=== PATIENT | female | born 1935 | race Two or more races ===

== ENCOUNTER → 2025-02-06 | Emergency (ER) | payer OTHER ==
[~2025-02-06] VITALS: Ht 160 cm; Wt 58.1 kg
[~2025-02-06] MED LIST: 0.9 % SODIUM CHLORIDE 1,000 ML IV SCH; ACETAMINOPHEN 500 MG GEL..CAP PO ONE; ADULT LOW DOSE81 M1 PO; ALL DAY ALLERGY10 M3 PO; AMLODIPINE-OLM1 EAC3 PO; AMMONIUM LACTA385 GM TOP; CALCIUM GLUCONATE 100 MG/ML VIAL IV ONE; CEFTRIAXONE SODIUM 2,000 MG in 0.9 % SODIUM CHLORIDE 100 ML IV ONE; CILOSTAZOL50 MG; CLOPIDOGREL BIS75 MG PO; DEXTROSE 50 % IN WATER 0.5 G/ML VIAL IV ONE; DULOXETINE HCL40 MG PO; FAMOTIDINE/PF 20 MG in 0.9 % SODIUM CHLORIDE 8 ML IV PUSH ONE; FARXIGA10 MG PO; GLIPIZIDE ER10 MG PO; HORIZANT300 MG PO; HYDRALAZINE HCL10 MG PO; INSULIN REGULAR, HUMAN 1,000 UNIT/10 ML UNITS IV ONE; JANUVIA100 MG PO; KETOROLAC TROMETHAMINE 30 MG VIAL IU ONE; PRAVASTATIN SOD40 MG PO; SODIUM POLYSTYRENE SULFONATE 30G/8 TSP PO ONE; VITAMIN D310 MCG/1 M PO; [UNRECOGNIZED DRUG - OTHER] TOP
[2025-02-06 19:07] LABS: BASO % 0.5 % (0.1-1.2); EOS # 0.08 (0.04-0.54); EOS % 1.0 % (0.7-7.0); LYMPH # 1.53 (1.18-3.74); LYMPH % 19.5 % (19.3-53.1); MEAN PLATELET VOLUME 10.30 fl (9.4-12.4); MONO # 0.46 (0.24-0.82); MONO % 5.9 % (4.7-12.5); NEUT # 5.73 (1.56-6.13); NEUT % 72.8 % (34.0-71.1); RED CELL DISTRIBUTION WIDTH 13.2 % (11.6-14.4)
[2025-02-06 19:10] LABS: ERYTHROCYTE SEDIMENTATION RATE 51 mm/hr (0-30)
[2025-02-06 19:45] LABS: ALT/SGPT 24.0 U/L (12-78); AST/SGOT 19.0 U/L (15-37); BILIRUBIN TOTAL 0.23 mg/dL (0.3-1.2); BUN CREA RATIO 26.0 (7.0-25.0); CREATININE SERUM 1.43 mg/dL (0.55-1.02); GFR 34.55; GLOBULINA 3.8 G/DL (2.4-3.5); GLUCOSE FASTING 130.0 mg/dL (65-100); OSMOLALITY SERUM 292.0 MOSM/KG (275-295)
== END | disposition left against medical advice (07) ==
LOC: ER 16:45
PROVIDERS: General Practice
DX: L03.114 Cellulitis of left upper limb (principal); I10 Essential (primary) hypertension; E11.9 Type 2 diabetes mellitus without complications
CPT/HCPCS: 29125; 36415; 73130; 96365; 99283; J7030